=== PATIENT | male | born 1985 | race Caucasian/White ===

== ENCOUNTER 2024-01-07 03:05 | Emergency (ER) | payer SELFPAY ==
[~2024-01-07] VITALS: Ht 165.1 cm; Wt 64.0 kg
[2024-01-07 03:07] VITALS: O2SAT 97
[2024-01-07] MEDS: TETANUS, DIPHTHERIA, PERTUSSIS VAC/PF 0.5ML (>10YR OLD) IM ONE (04:08)
[2024-01-07] MEDS: LIDOCAINE HCL/PF 1% 10 MG/ML 5ML VIAL INFIL ONE (04:55)
[2024-01-07] MEDS: BACITRACIN ZINC OINT UDPKT TOP ONE (04:55)
[2024-01-07 04:58] VITALS: BP 115/73; PULSE 98; RESP 18; TEMP 99
== END 2024-01-07 06:40 | disposition home or self-care (01) ==
LOC: ER 03:24
DX: S01.81XA Laceration without foreign body of other part of head, initial encounter (principal); X58.XXXA Exposure to other specified factors, initial encounter; Y93.89 Activity, other specified; Y92.89 Other specified places as the place of occurrence of the external cause; Y99.8 Other external cause status
CPT/HCPCS: 90715; 12013; 90471; 99283; Z7610